=== PATIENT | female | born 1985 | race Caucasian/White ===

== ENCOUNTER 2017-06-10 21:10 | Emergency (ER) | payer MEDICAID ==
[~2017-06-10] VITALS: Ht 167.6 cm; Wt 97.5 kg
--- NOTE | 2017-06-10 21:20 | NUR ---
BIB SELF C/O CONSTANT LT FOOT PAIN X 4 DAYS, "FEELS LIKE SAME SYMPTOMS OF BLOOD CLOT". NAD NOTED. VSS, RESP EVEN AND UNLABORED. WAITING FOR MD TANNER
[2017-06-10 23:14] VITALS: BP 136/76
--- NOTE | 2017-06-10 23:14 | NUR ---
Patient discharged to home in stable condition. Written and verbal after care instructions given. Patient verbalizes understanding of instruction.
== END 2017-06-10 23:15 | disposition home or self-care (01) ==
LOC: ER 21:21
DX: S90.32XA Contusion of left foot, initial encounter (principal); F41.9 Anxiety disorder, unspecified; Z86.718 Personal history of other venous thrombosis and embolism; Z88.2 Allergy status to sulfonamides; X58.XXXA Exposure to other specified factors, initial encounter; Y93.89 Activity, other specified; Y92.89 Other specified places as the place of occurrence of the external cause; Y99.8 Other external cause status
CPT/HCPCS: 93971-TC; A4606; Z7610